=== PATIENT | male | born 1980 | race Caucasian/White ===

== ENCOUNTER 2016-11-27 22:03 | Emergency (ER) | payer MEDICARE, BC ==
[2016-11-27] MEDS ORDERED: Gabapentin CAP(*) 100 MG PO ONE (22:58)
--- NOTE | 2016-11-27 23:09 | ED ---
Back Pain - HPI Summary HPI Summary: Patient is from out of town and presents to ED with request for a medication refill of Gabapentin. He states he misplaced the bottle as he was traveling here. He needs 4 days worth until he follows up with his doctor in his hometown. The gabapentin is for chronic back pain. He states he has new onset neck pain after traveling on a flight recently. He has full ROM, but states there was 8/10 pain after the flight without radiation. - History of Current Complaint Chief Complaint: EDNeckComplaint Stated Complaint: MED REQUEST/NECK AND BACK PAIN Time Seen by Provider: 11/27/16 22:18 Hx Obtained From: Patient Onset/Duration: Gradual Onset Timing: Constant Back Pain Location: Is Diffuse - throughout back Severity Initially: Moderate Severity Currently: Moderate Pain Intensity: 7 Pain Scale Used: 0-10 Numeric Character: Aching, Throbbing Alleviating Symptom(s): Rest - Risk Factors AAA Risk Factors: Negative TAD Risk Factors: Negative Cauda Equina Risk Factors: Negative Epidural Abscess Risk Factors: Negative - Allergies/Home Medications Allergies/Adverse Reactions: Allergies Allergy/AdvReac Type Severity Reaction Status Date / Time Penicillins Allergy Hives Verified 11/27/16 22:31 Home Medications: Home Medications Gabapentin CAP(*) 800 mg PO TID 11/27/16 [History Confirmed 11/27/16] Methocarbamol TAB* 500 mg PO QID 11/27/16 [History Confirmed 11/27/16] PMH/Surg Hx/FS Hx/Imm Hx Previously Healthy: Yes - Immunization History Hx Pertussis Vaccination: No Immunizations Up to Date: Unable to Obtain/Confirm Infectious Disease History: Denies: Traveled Outside the [place] in Last 30 Days - Social History Occupation: Employed Full-time Lives: With Family Alcohol Use: Weekly Hx Substance Use: No Substance Use Type: Reports: None Substance Use Comment - Amount & Last Used: previous prescription drug addiction Hx Tobacco Use: Yes Smoking Status (MU): Heavy Every Day Tobacco Smoker Review of Systems Constitutional: Negative Eyes: Negative Cardiovascular: Negative Respiratory: Negative Positive: Arthralgia, Myalgia Skin: Negative Neurological: Negative Psychological: Normal All Other Systems Reviewed And Are Negative: Yes Physical Exam Triage Information Reviewed: Yes Vital Signs On Initial Exam: Initial Vitals Temp Pulse Resp BP Pulse Ox 97.6 F 80 16 129/92 100 11/27/16 22:06 11/27/16 22:06 11/27/16 22:06 11/27/16 22:06 11/27/16 22:06 Vital Signs Reviewed: Yes Appearance: Positive: Well-Appearing, Well-Nourished Skin: Positive: Warm, Skin Color Reflects Adequate Perfusion Head/Face: Positive: Normal Head/Face Inspection Eyes: Positive: EOMI, JUAQUIN, Conjunctiva Clear Neck: Positive: Supple, Nontender, No Lymphadenopathy Respiratory/Lung Sounds: Positive: Clear to Auscultation, Breath Sounds Present Cardiovascular: Positive: Normal, RRR Musculoskeletal: Positive: Pain @ - diffuse throughout spine Neurological: Positive: Normal, Sensory/Motor Intact Psychiatric: Positive: Normal AVPU Assessment: Alert - Adam Coma Scale Coma Scale Total: 15 Diagnostics - Vital Signs Vital Signs Temp Pulse Resp BP Pulse Ox 11/27/16 22:22 97.6 F 80 16 129/92 100 11/27/16 22:06 97.6 F 80 16 129/92 100 - Laboratory Lab Statement: Any lab studies that have been ordered have been reviewed, and results considered in the medical decision making process. Back Pain Course/Dx - Course Course Of Treatment: Provider discussed medications. Will prescribe gabapentin 800mg three times daily for 4 days and patient will follow up and call his PCP on Wednesday for refill. Patient agrees to this. - Diagnoses Differential Diagnosis/HQI/PQRI: Positive: Herniated Disc, Strain, Sprain Provider Diagnoses: Medication refill Discharge - Discharge Plan Condition: Stable Disposition: HOME Prescriptions: Gabapentin CAP(*) [Neurontin 400 mg CAP(*)] 800 mg PO TID #24 cap Referrals: Non Staff,Doctor [Primary Care Provider] - Additional Instructions: Follow up with your PCP regarding medication refill.
[2016-11-27 23:18] VITALS: BP 116/72
== END 2016-11-27 23:40 | disposition home or self-care (01) ==
LOC: ED 22:03
DX: G89.29 Other chronic pain (principal); M54.2 Cervicalgia; Z76.0 Encounter for issue of repeat prescription; Z88.0 Allergy status to penicillin; F17.210 Nicotine dependence, cigarettes, uncomplicated
CPT/HCPCS: 99282; A9270-GY